=== PATIENT | female | born 2000 | race Two or more races ===

== ENCOUNTER → 2024-10-01 | Outpatient (CLI) | payer MEDICAID, SELFPAY ==
--- NOTE | 2024-10-01 14:48 | XR_ITS ---
Examination: Thoracic spine 2 views Technique one AP lateral thoracic spine 2 views Date and time: October 01, 2024 1524 hours INDICATIONS: Back pain 6 years. FINDINGS: Upper thoracic levoscoliosis 6 degrees No thoracic fracture, no thoracic disc narrowing IMPRESSION: No thoracic fracture, no thoracic disc narrowing
--- NOTE | 2024-10-01 14:48 | XR_ITS ---
Termination: Lumbar spine 3 views Technique one AP lateral coned lateral lower lumbar spine 3 views Date and time: October 01, 2024 1529 hours INDICATIONS: Low back pain 6 years. FINDINGS: Adequate alignment lumbar vertebral bodies No lumbar fracture. No significant lumbar disc narrowing IMPRESSION: No lumbar fracture No significant lumbar disc narrowing
== END | disposition home or self-care (01) ==
LOC: SDIM 14:35
PROVIDERS: PCP Physician Assistant; Referring Provider Physician Assistant; Visit Provider Physician Assistant
DX: M54.50 Low back pain, unspecified (principal)
CPT/HCPCS: 72070; 72100

== ENCOUNTER 2025-01-03 05:17 | Emergency (ER) | payer MEDICAID, SELFPAY ==
[2025-01-03 05:17] VITALS: BMI 21.6
[2025-01-03 05:25] VITALS: BP 118/77; PULSE 90; RESP 16; TEMP 36.7; O2SAT 97
--- NOTE | 2025-01-03 05:38 | XR_ITS ---
EXAMINATION: PA chest single view TECHNIQUE: Upright PA chest single view Date and time: #32024, 0540 hours INDICATIONS: Chest pain, cardiac palpitation, shortness of breath, headache dizziness syncopal episode today FINDINGS: Normal heart size No pneumonia or pulmonary edema. Osseous structures are intact. IMPRESSION: No active disease
--- NOTE | 2025-01-03 05:38 | EKG_ITS ---
[facility] Test Date: 2025-01-03 Pat Name: MAYANK DUARTE Department: Room: - Gender: Female [employer]: : 2000 Requested By: Sofia Parra Order Number: [id number] Reading MD: Sofia Parra Measurements Intervals [place] Rate: 90 P: 73 WA: 137 QRS: 116 QRSD: 76 T: 45 QT: 353 QTc: 433 Interpretive Statements SINUS RHYTHM WITH SINUS ARRHYTHMIA POSSIBLE LEFT ATRIAL ENLARGEMENT [-0.1mV P-WAVE IN V1/V2] INDETERMINATE AXIS POSSIBLE RIGHT VENTRICULAR CONDUCTION DELAY [RSR (QR) IN V1/V2] LEFT POSTERIOR FASCICULAR BLOCK [QRS AXIS > 109, INFERIOR Q] SEPTAL MYOCARDIAL INFARCTION , OF INDETERMINATE AGE [40+ ms Q WAVE IN V1/V2] Compared to ECG 11/25/2022 15:55:13 Indeterminate axis now present Left posterior fascicular block now present Myocardial infarct finding now present /store/S0/[id number].pdf
--- NOTE | 2025-01-03 05:39 | EDRME_ITS ---
Rapid Medical Screening Exam [facility] Arrival date/time: 01/03/25 05:17 This is a case of 24-year-old female who came in in the emergency room due to chest pain palpitation shortness of breath headache and dizziness wanted to pass out patient also requested to be tested for TSH due to history of hyperthyroid persistence of the symptoms this patient decided to start consulted in the emergency room Chief Complaint: Headache Vital signs: Vital Signs Temperature 98.0 F 01/03/25 05:25 Pulse Rate 90 01/03/25 05:25 Respiratory Rate 16 01/03/25 05:25 Blood Pressure 118/77 01/03/25 05:25 Pulse Oximetry (%) 97 01/03/25 05:25 Oxygen Delivery Method Room Air 01/03/25 05:25 Exam: Awake alert oriented x 4 no focal deficit GCS 15/15 steady gait clear breath sound and NRRR no murmur Clinical Impression: Chest pain headache
[2025-01-03 06:14] LABS: Basophils # (Auto) 0.0 Thou/mm3 (0.0-0.2); Basophils % (Auto) 0 % (0-2.5); Eosinophils # (Auto) 0.1 Thou/mm3 (0.0-0.5); Eosinophils % (Auto) 1 % (0-10); Hematocrit 44.2 % (36.0-46.0); Hemoglobin 15.3 g/dL (12.0-16.0); Immature Granulocytes Auto 0.02 Thou/mm3 (0.00-0.00); Lymphocytes # (Auto) 3.3 Thou/mm3 (1.0-4.8); Lymphocytes % (Auto) 36 % (10-50); Mean Corpuscular HGB Conc 34.6 g/dl (31.0-37.0); Mean Corpuscular Hemoglobin 31.5 pg (25.0-35.0); Mean Corpuscular Volume 91 fL (80-100); Monocytes # (Auto) 0.6 Thou/mm3 (0.0-0.8); Monocytes % (Auto) 7 % (0-12); Neutrophils # (Auto) 5.1 Thou/mm3 (1.8-7.7); Neutrophils % (Auto) 55 % (37-80); Nucleated Red Blood Cell # 0.00 Thou/mm3 (0.00-0.00); Nucleated Red Blood Cell % 0 /100 WBC (0); Platelet Count 243 Thou/mm3 (140-440); RDW Standard Deviation 39.6 fL (36.4-46.3); Red Blood Count 4.86 Miln/mm3 (4.00-5.20); White Blood Count 9.2 Thou/mm3 (3.6-11.0)
[2025-01-03 06:32] LABS: B-Type Natriuretic Peptide < 20 pg/mL (0-100)
[2025-01-03 06:43] LABS: Alanine Aminotransferase 8 U/L (10-49); Albumin, Serum 5.2 gm/dL (3.5-5.0); Albumin/Globulin Ratio 2.4 (1.2-2.2); Alkaline Phosphatase 115 U/L (46-116); Anion Gap 10 (7-16); Aspartate Amino Transferase 16 U/L (0-34); BUN/Creatinine Ratio 11 Ratio (12-20); Bilirubin,Total 0.8 mg/dL (0.3-1.2); Blood Urea Nitrogen 9 mg/dL (9-23); Calcium 10.0 mg/dL (8.3-10.6); Calcium (Corrected) 10.0 mg/dL (8.5-10.1); Carbon Dioxide 27.2 mMol/L (20.0-31.0); Chloride 104 mMol/L (98-107); Creatinine (Component) 0.8 mg/dL (0.6-1.3); Estimated Creatinine Clearance 96.7 mL/min (>60); Globulin 2.2 gm/dL (2.3-3.5); Glucose 106 mg/dL (74-106); Osmolality,Calculated 279 (275-295); Potassium 3.8 mMol/L (3.4-5.1); Sodium 141 mMol/L (136-145); Thyroid Stimulating Hormone 0.96 uIU/mL (0.55-4.78); Total Protein 7.4 gm/dL (5.7-8.2); Troponin I < 0.002 ng/mL (0.0-0.045); eGFR > 60 See Note
[2025-01-03 07:17] LABS: Collection Type, Urine Clean Catch
[2025-01-03 07:37] LABS: Bilirubin,Urine Negative (Negative); Blood,Urine 1+ (Negative); Calcium Oxalate Crystals,Urine 3+; Clarity,Urine Clear (Clear/Hazy); Color,Urine Yellow (Lt Yel-Yel); Glucose, Urine Negative (Negative); Ketones,Urine Negative (Negative); Leukocyte Esterase,Urine Positive (Negative); Nitrite,Urine Negative (Negative); PH,Urine 6.5 (5.0-7.0); Protein,Urine Negative (Neg - Trace); RBC,Urine 3 /hpf (0-3); Specific Gravity,Urine 1.027 (1.001-1.035); Squamous Epithelial Cell,Urine 2 /hpf (0-5); Urobilinogen,Urine Negative mg/dL (0.0-1.0); WBC,Urine 2 /hpf (0-5)
[2025-01-03 07:39] LABS: HCG Qualitative,Urine Negative
--- NOTE | 2025-01-03 08:45 | EDNOTE_ITS ---
<Statement entered by Simi Busby MD - 01/05/25 17:56> As co-signing physician, I was present and available for consult prn. I concur with the plan and care as documented by the midlevel provider. ED Chest Pain RME/HPI General Chief Complaint: Headache Stated Complaint: HEADACHE, FEELS DIZZY, SOB Time Seen by Provider: 01/03/25 06:11 Source: patient Arrival date/time: 01/03/25 05:17 24-year-old female with no known medical history presents to the emergency room with a chief complaint of a headache, dizziness, shortness of breath, palpitations x 2 days Mode of arrival: ambulatory Limitations: no limitations RME / HPI RME / HPI narrative: 01/03/25 05:17 This is a case of 24-year-old female who came in in the emergency room due to chest pain palpitation shortness of breath headache and dizziness wanted to pass out patient also requested to be tested for TSH due to history of hyperthyroid persistence of the symptoms this patient decided to start consulted in the emergency room Exam: Awake alert oriented x 4 no focal deficit GCS 15/15 steady gait clear breath sound and NRRR no murmur Impression: Chest pain headache Related Data Home Medications ?Medication ?Instructions ?Recorded ?Confirmed vitamin-ferrous fumarate 1 tab PO QDAY 08/26/22 28 mg iron-folic acid 800 mcg tablet ( Vitamins with Minerals) Previous Rx's ?Medication ?Instructions ?Recorded docusate sodium 100 mg capsule 100 mg PO BID #60 caps 11/06/22 (Colace) ibuprofen 800 mg tablet 800 mg PO Q6H PRN pain #90 t abs 11/06/22 lanolin 50 % topical ointment 1 applic topical TID PRN skin 11/06/22 irritation #15 tubes hydrocodone 5 mg-acetaminophen 325 1 tab PO Q6H #14 ta bs 11/24/22 mg tablet Allergies Allergy/AdvReac Type Severity Reaction Status Date / Time morphine Allergy Severe Rash Verified 11/25/22 15:32 Review of Systems Review of Systems Systems Reviewed: All systems reviewed, normal except as documented Constitutional Constitutional: Reports system reviewed and no additional complaints, except as documented, Denies fatigue, Denies fever(s), Denies headache(s) and Denies weakness Eyes Eyes: Reports system reviewed and no additional complaints, except as documented, Denies blurry vision and Denies change in vision ENT Ears, Nose, Mouth, and Throat: Reports system reviewed and no additional complaints, except as documented, Denies otalgia, Denies headache(s), Denies nasal congestion, Denies throat swelling and Denies vertigo Cardiovascular Cardiovascular: Reports system reviewed and no additional complaints, except as documented, Reports chest pain, Reports dyspnea, Denies dyspnea on exertion and Reports palpitations Respiratory Respiratory: Reports system reviewed and no additional complaints, except as do cumented, Denies chest congestion, Denies cough, Reports dyspnea, Denies dyspnea on exertion and Denies wheezing Gastrointestinal Gastrointestinal: Reports system reviewed and no additional complaints, except as documented, Denies abdominal pain, Denies cramping, Denies nausea and Denies vomiting Genitourinary Genitourinary: Reports system reviewed and no additional complaints, except as documented Musculoskeletal Musculoskeletal: Reports system reviewed and no additional complaints, except as documented and Denies back pain Integumentary/Breasts Skin/Breast: Reports system reviewed and no additional complaints, except as documented and Denies wounds Neurologic Neurologic: Reports system reviewed and no additional complaints, except as documented, Denies confusion, Denies headache(s), Denies lack of coordination, Denies vertigo and Denies weakness Psychiatric Psychiatric: Reports system reviewed and no additional complaints, except as documented, Denies anxiety, Denies confusion, Denies depression, Denies paranoia, Denies suicidal ideation and Denies tactile hallucinations Endocrine Endocrine: Reports system reviewed and no additional complaints, except as documented, Denies fatigue and Reports palpitations Hematologic/Lymphatic Hematologic/Lymphatic: Reports system reviewed and no additional complaints, except as documented and Denies lymphadenopathy Allergic/Immunologic Allergic/Immunologic: Reports system reviewed and no additional complaints, except as documented, Denies throat swelling, Denies urticaria and Denies wheezing Past Medical History Past Medical History NEUROLOGIC: Negative Neurological Disorders or Seizures CARDIAC: Negative Cardiac Disorders or Congestive Heart Failure RESPIRATORY: Negative Chronic Obstructive Pulmonary Disease (COPD) GASTROINTESTINAL: Negative Gastrointestinal Disorders GENITOURINARY: Negative Genitourinary Disorders or Renal Disease REPRODUCTIVE: Positive Previous Pregnancies MUSCULOSKELETAL: Negative Musculoskeletal Disorders ENDOCRINE: Negative Endocrine Disorders, Diabetes Mellitus Type 1 or Diabetes Mellitus Type 2 HEMATOLOGIC: Negative Blood Disorders OTHER HISTORY: Negative Autoimmune Disease, Falls, Blood Transfusions, Blood Transfusion Reaction, Anesthesia Reactions, MRSA, Chicken Pox or Cancer Family History FAMILY HISTORY: Negative Family Cardiac Disorders Surgical History SURGICAL: Negative Section Social History SMOKING STATUS: Never smoker ED Exam General Limitations: Present no limitations General appearance: Present alert and in no apparent distress Head Head exam: Present atraumatic Eye Eye exam: Present normal appearance, PERRL and EOMI ENT ENT exam: Present normal exam, normal oropharynx and mucous membranes moist Neck Neck exam: Present normal inspection, full ROM and trachea midline Chest Chest inspection: Present normal inspection and symmetric chest wall rise Respiratory Respiratory exam: Present normal lung sounds bilaterally; Absent respiratory distress, wheezes, stridor, accessory muscle use or prolonged expiratory phase Cardiovascular Cardiovascular exam: Present regular rate, normal rhythm, normal heart sounds, +S1 and +S2; Absent bradycardia, tachycardia or irregular rhythm Abdominal Exam Abdominal exam: Present soft and normal bowel sounds; Absent distention, tenderness, guarding, rebound or rigidity Extremities Exam Extremities exam: Present normal inspection and full ROM Back Exam Back exam: Present normal inspection and full ROM Neurological Exam Neurological exam: Present alert, oriented X3 and CN II-XII intact Psychiatric Psychiatric exam: Present normal affect and normal mood Skin Skin exam: Present warm, dry, intact and normal color Course Quality Measures none Orders Category Date Time Status EKG (ED ONLY) *Do not use* NOW Care 01/03/25 05:38 Completed EKG (ED Only) Stat Exams 01/03/25 05:38 Draft XR chest 1V portable Stat Exams 01/03/25 05:38 Completed BNP [B-Type Natriuretic Peptide] Stat Lab 01/03/25 05:56 Completed CBC Stat Lab 01/03/25 05:56 Completed Comprehensive Metabolic Panel Stat Lab 01/03/25 05:56 Completed HCG Qualitative,Urine Stat Lab 01/03/25 06:20 Completed TSH [Thyroid Stimulating Hormone] Stat Lab 01/03/25 05:56 Completed Troponin I Stat Lab 01/03/25 05:56 Completed Urinalysis Stat Lab 01/03/25 06:20 Completed Vital Signs Vital signs: Vital Signs Temperature 98.0 F 01/03/25 05:25 Pulse Rate 90 01/03/25 05:25 Respiratory Rate 16 01/03/25 05:25 Blood Pressure 118/77 01/03/25 05:25 Pulse Oximetry (%) 97 01/03/25 05:25 Oxygen Delivery Method Room Air 01/03/25 05:25 Chest Pain MDM Narrative MDM Narrative:: 24-year-old female with no known medical history presents to the emergency room with a chief complaint of a headache, dizziness, shortness of breath, palpitations x 2 days Patient is hemodynamically stable and in no apparent distress Physical examination shows clear bilateral lung sounds. The patient has a strong and regular rhythm S1 and S2 noted EKG showed normal sinus rhythm with no ST deviation. CBC CMP troponin were all within normal limits. TSH and thyroid hormones were all within normal limits Patient was discharged and educated to follow-up with primary care provider in the next 24 to 48 hours and return to the emergency room for any evidence of worsening signs or symptoms Patient data External records reviewed:: [facility] previous records Clinical information provided by:: patient Social determinants that could affect healthcare access:: none Patient has the following chronic illnesses:: No chronic illness How is presenting disease/condition affected by chronic disease/condition?: no chronic disease Evaluation data The following diagnostics were reviewed and interpreted by me:: lab results and radiology exam(s) Lab and/or radiology exams considered but not ordered:: Labs and radiology exams considered and ordered Interpretation Summary: Chest x-ray-no acute findings Medications / Prescriptions Medications or Prescriptions considered but not ordered:: Medication given Medication administrations:: No medication given Consultations Consultation(s) initiated? (list below): No Diagnosis Chest Pain Differential Diagnosis: stable angina, unstable angina pectoris, atypical chest pain, st elevation myocardial infarction, costochondritis and chest pain Most likely diagnosis given after review of the tests above:: Chest pain Admission Indicated Admission indicated?: not indicated Admission Request Was there a request for admission?: No Disposition Plan Disposition Plan: Discharge Discharge Attestation Discharge Attestation: The patient and all family members were given an opportunity to ask questions and understood the discharge instructions. Discharge instructions specifically effects, indications for sooner follow up or return to the emergency department, and the expected course of current diagnosis. Patient condition: Stable Discharge Plan Plan Patient Disposition: HOME (Self Care) Discharge Disposition comment: Stable Prescriptions/Referrals Prescriptions/Med Rec: No Action vit-iron fum-folic ac [ Vitamin with Minerals] 28 mg iron- 800 mcg Tablet 1 tab PO QDAY ibuprofen 800 mg tablet 800 mg PO Q6H MDD 4 PRN (Reason: pain) Qty: 90 0RF docusate sodium [Colace] 100 mg capsule 100 mg PO BID Qty: 60 0RF lanolin 50 % ointment 1 applic topical TID PRN (Reason: skin irritation) Qty: 15 0RF hydrocodone-acetaminophen 5-325 mg tablet 1 tab PO Q6H MDD 4 Qty: 14 0RF Referrals: Paulina Jurado PA-C [Primary Care Provider] - In 1 week Problem List Clinical Impression: Palpitations Patient/Caregiver Discharge Instructions Education Materials: ED About Arrhythmias, ED Palpitations Additional Instructions: Please follow-up with your primary care provider in the next 24 to 48 hours Your cardiac examination today was within normal limits. If your signs and symptoms continue please follow-up with your primary care provider as a referral to a daycare worker may be indicated For any evidence of worsening signs or symptoms return to the emergency room immediately Print Language: [place] Stand Alone Forms: Alexia Award Info., Work/School Release, Patient Portal Info Letter PA/BIN Supervising Physician PA/BIN Supervising Physician: Dr. Fabian
== END 2025-01-03 08:35 | disposition home or self-care (01) ==
PROVIDERS: Emergency Provider Nurse Practitioner Family; PCP Physician Assistant
DX: I49.9 Cardiac arrhythmia, unspecified (principal)
CPT/HCPCS: 36415; 71045; 80053; 81001; 81025; 83880; 84443; 84484; 85025; 93005; 99283